=== PATIENT | male | born 1965 | race Caucasian/White ===

== ENCOUNTER → 2017-01-29 | Outpatient (CLI) | payer BC, OTHER ==
[~2017-01-29] MED LIST: CIPR-255 PO
--- NOTE | 2017-01-29 10:52 | DIAGNOSTIC IMAGING REPORT ---
LEFT SHOULDER MIN 2 VIEWS CLINICAL HISTORY: LEFT SHOULDER PAIN COMPARISON: None. DISCUSSION: No fractures or dislocations are visualized. There is a tiny corticated ossicle adjacent the anterior aspect of the shoulders visualized the axillary view. IMPRESSION: No fractures dislocations or destructive lesions are visualized. Electronically signed by: Kain Ivey M.D. 01/29/2017 10:51 AM Dictated Date/Time: 01/29/2017 10:50 AM
== END | disposition home or self-care (01) ==
LOC: C.RDSM 10:32
PROVIDERS: ATTEND Family Medicine
DX: M25.512 Pain in left shoulder (principal)